=== PATIENT | female | born 1955 | race Two or more races ===

== ENCOUNTER 2021-05-23 14:32 | Inpatient (IN) | payer MEDICARE, MEDICAID ==
[~2021-05-23] VITALS: Ht 165.1 cm; Wt 86.4 kg
[2021-05-23 16:53] LABS: Basophils # (auto) 0 10 ^3/uL (0-0.2); Basophils % (auto) 0.2 % (0.0-2.0); Eosinophils # (auto) 0 10 ^3/uL (0-0.8); Eosinophils % (auto) 0.1 % (0.0-7.0); Hematocrit 22.7 % (36.0-46.0); Hemoglobin 7.7 g/dL (12.2-16.2); Lymphocytes # (auto) 0.8 10 ^3/uL (0.4-5.4); Lymphocytes % (auto) 6.6 % (10.0-50.0); Mean Corpuscular Hemoglobin 29.6 pg (28.0-32.0); Mean Corpuscular Hgb Conc. 33.9 g/dL (32.0-36.0); Mean Corpuscular Volume 87.4 fL (80.0-100.0); Monocytes # (auto) 0.4 10 ^3/uL (0-1.3); Monocytes % (auto) 3.4 % (0.0-12.0); Neutrophils # (auto) 10.9 10 ^3/uL (1.6-8.6); Neutrophils % (auto) 89.7 % (37.0-80.0); Red Cell Distribution Width 13.5 % (11.8-14.3); White Blood Cell 12.1 10^3/uL (4.4-10.8)
[2021-05-23] MEDS ORDERED: FERROUS SULFATE 325mg EC TAB PO ONE ×2 (17:00→21:00)
[2021-05-23 17:03] LABS: Albumin 2.2 g/dL (3.4-5.0); Calcium 7.7 mg/dL (8.5-10.1); Potassium 4.3 mmol/L (3.5-5.1)
[2021-05-23 17:08] LABS: BUN/Creatinine Ratio 42.2; Bilirubin, Total 0.3 mg/dL (0.2-1.0); Total Protein 5.9 g/dL (6.4-8.2)
[2021-05-23] MEDS ORDERED: NOREPINEPHRINE 8 MG/250ML KIT 250 ML IV SCH (17:15)
[2021-05-23] MEDS ORDERED: NITROGLYCERIN 0.4 MG SL TAB SL PRN (18:00)
[2021-05-23] MEDS ORDERED: MORPHINE SULFATE INJECTION 2 MG/ML SYRG IV PRN ×2 (18:00→21:00)
[2021-05-23] MEDS ORDERED: SODIUM CHLORIDE 0.9% 1,000 ML IV ONE ×2 (18:15→19:00)
[2021-05-23] MEDS ORDERED: LACTULOSE 20Gm/30ML SOLN PO PRN (21:00)
[2021-05-23] MEDS ORDERED: IPRATROPIUM BROM 0.5 MG/2.5ML INH SOL NEB ONE (21:00)
[2021-05-23] MEDS ORDERED: HYDROcodone-ACET 5/325MG TAB PO ONE (21:00)
[2021-05-23] MEDS ORDERED: METOCLOPRAMIDE HCL 5MG/ml INJ 2ml VIAL IV PRN (21:00)
[2021-05-23] MEDS ORDERED: hydrALAZINE HCL 20 MG/ML VL IV PRN (21:00)
[2021-05-23] MEDS ORDERED: MULTIPLE VITAMINS W/ MINERALS TAB PO ONE (21:00)
[2021-05-23] MEDS ORDERED: cefTRIAXone 1GM/50ML D5W 50 ML IV ONE (21:00)
[2021-05-23] MEDS ORDERED: PANTOPRAZOLE 40 MG/10 ML VIAL INJ IV ONE (21:00)
[2021-05-23] MEDS ORDERED: DOCUSATE SOD 100 MG CAP PO PRN (21:00)
[2021-05-23 21:54] LABS: Urine Bacteria NONE SEEN /hpf (None Seen); Urine Blood Negative /uL (Negative); Urine Specific Gravity 1.019 (1.001-1.035); Urine WBC <1 /hpf (0 - 5)
[2021-05-23 22:00] VITALS: BP 107/59
[2021-05-23] MEDS: METOPROLOL TARTRATE 25 MG TAB PO SCH (22:00)
[2021-05-23] MEDS ORDERED: AZITHROMYCIN 500MG/ 250ML 250 ML IV ONE (22:00)
[2021-05-23] MEDS ORDERED: ACETYLCYSTEINE 10 %(100MG/ML) SOL 4ML NEB SCH (22:00)
[2021-05-23] MEDS ORDERED: IPRATROPIUM BROM 0.5 MG/2.5ML INH SOL NEB SCH (22:00)
[2021-05-23 22:50] LABS: Magnesium 1.8 mg/dL (1.6-2.6); Phosphorus 2.3 mg/dL (2.5-4.90)
[2021-05-23] MEDS: ONDANSETRON HCL 4 MG/2 ML VIAL IV PRN (23:08)
[2021-05-23] MEDS: LORazepam 0.5 MG TAB PO PRN (23:09)
[2021-05-23] MEDS: SODIUM CHLORIDE 0.9% 1,000 ML IV SCH (23:09)
[2021-05-23] MEDS: ATORVASTATIN 20 MG TAB PO SCH (23:09)
[2021-05-23 23:33] LABS: Partial Thromboplastin Time 65.1 sec (23.6-33.0)
[2021-05-23 23:58] LABS: INR 4.22 (0.9-1.15)
[2021-05-24] VITALS (12 sets, daily range): BP systolic 92–129; BP diastolic 50–72
[2021-05-24 06:24] LABS: Basophils # (auto) 0 10 ^3/uL (0-0.2); Basophils % (auto) 0.3 % (0.0-2.0); Eosinophils # (auto) 0.1 10 ^3/uL (0-0.8); Lymphocytes # (auto) 1.6 10 ^3/uL (0.4-5.4); Monocytes # (auto) 0.7 10 ^3/uL (0-1.3)
[2021-05-24 06:27] LABS: Eosinophils % (auto) 0.7 % (0.0-7.0); Lymphocytes % (auto) 18.3 % (10.0-50.0); Mean Corpuscular Hemoglobin 30.8 pg (28.0-32.0); Mean Corpuscular Hgb Conc. 34.8 g/dL (32.0-36.0); Mean Corpuscular Volume 88.5 fL (80.0-100.0); Monocytes % (auto) 8.3 % (0.0-12.0); Neutrophils # (auto) 6.5 10 ^3/uL (1.6-8.6); Neutrophils % (auto) 72.4 % (37.0-80.0); Red Cell Distribution Width 13.8 % (11.8-14.3)
[2021-05-24 06:42] LABS: Hemoglobin 5.2 g/dL (12.2-16.2)
[2021-05-24 06:45] LABS: Albumin 1.8 g/dL (3.4-5.0); Calcium 7.2 mg/dL (8.5-10.1); Potassium 3.9 mmol/L (3.5-5.1)
[2021-05-24 06:47] LABS: Partial Thromboplastin Time 66.3 sec (23.6-33.0)
[2021-05-24 06:52] LABS: INR 4.37 (0.9-1.15)
[2021-05-24 06:54] LABS: BUN/Creatinine Ratio 48.1; Bilirubin, Total 0.2 mg/dL (0.2-1.0); CRP High Sensitivity 5.51 mg/dL (< 0.3); Phosphorus 2.2 mg/dL (2.5-4.90); Total Protein 4.7 g/dL (6.4-8.2)
[2021-05-24] MEDS ORDERED: PHYTONADIONE(VitK) ORAL Susp 5mg/5ml(1mg/ml) PO ONE ×2 (07:15→12:15)
[2021-05-24] MEDS: FERROUS SULFATE 325mg EC TAB PO SCH ×3 (10:05→18:08)
[2021-05-24] MEDS: PANTOPRAZOLE 40 MG/10 ML VIAL INJ IV SCH ×2 (10:05→22:24)
[2021-05-24] MEDS: LOSARTAN POTASSIUM 25 MG TAB PO SCH (10:05)
[2021-05-24] MEDS: CHOLECALCIFEROL (VITD3) 2,000 UNIT CAP/TAB PO SCH (10:06)
[2021-05-24] MEDS: METOPROLOL TARTRATE 25 MG TAB PO SCH ×2 (10:06→22:24)
[2021-05-24] MEDS: SODIUM CHLORIDE 0.9% 1,000 ML IV SCH ×2 (10:20→23:40)
[2021-05-24] MEDS ORDERED: PHYTONADIONE (VIT K)10 MG/ML 1ML VIAL SUBCUT ONE (11:45)
[2021-05-24 16:17] LABS: Partial Thromboplastin Time 50.4 sec (23.6-33.0)
[2021-05-24 16:33] LABS: INR 4.14 (0.9-1.15)
[2021-05-24] MEDS: HYDROcodone-ACET 5/325MG TAB PO PRN (18:09)
[2021-05-24] MEDS: ONDANSETRON HCL 4 MG/2 ML VIAL IV PRN (18:45)
[2021-05-24 21:21] LABS: Hematocrit 19.5 % (36.0-46.0)
[2021-05-24 21:29] LABS: Hemoglobin 6.7 g/dL (12.2-16.2)
[2021-05-24] MEDS: cefTRIAXone 1GM/50ML D5W 50 ML IV SCH (21:40)
[2021-05-24] MEDS: AZITHROMYCIN 500MG/ 250ML 250 ML IV SCH (22:00)
[2021-05-24] MEDS: MULTIPLE VITAMINS W/ MINERALS TAB PO SCH (22:24)
[2021-05-24] MEDS: ATORVASTATIN 20 MG TAB PO SCH (22:24)
[2021-05-25] VITALS (12 sets, daily range): BP systolic 98–140; BP diastolic 51–71
[2021-05-25] MEDS: SODIUM CHLORIDE 0.9% 1,000 ML IV SCH ×2 (05:40→19:50)
[2021-05-25 05:53] LABS: INR 1.79 (0.9-1.15)
[2021-05-25 05:58] LABS: Basophils # (auto) 0 10 ^3/uL (0-0.2); Basophils % (auto) 0.4 % (0.0-2.0); Eosinophils # (auto) 0.3 10 ^3/uL (0-0.8); Eosinophils % (auto) 2.8 % (0.0-7.0); Hematocrit 21.5 % (36.0-46.0); Hemoglobin 7.5 g/dL (12.2-16.2); Lymphocytes # (auto) 2.4 10 ^3/uL (0.4-5.4); Lymphocytes % (auto) 25.3 % (10.0-50.0); Mean Corpuscular Hemoglobin 31.1 pg (28.0-32.0); Mean Corpuscular Hgb Conc. 34.8 g/dL (32.0-36.0); Mean Corpuscular Volume 89.2 fL (80.0-100.0); Monocytes # (auto) 0.7 10 ^3/uL (0-1.3); Monocytes % (auto) 6.9 % (0.0-12.0); Neutrophils # (auto) 6.1 10 ^3/uL (1.6-8.6); Neutrophils % (auto) 64.6 % (37.0-80.0); Nucleated Red Blood Cells % 0.1 %; Red Blood Cells 2.41 10^6/uL (4.0-5.20); Red Cell Distribution Width 13.9 % (11.8-14.3); White Blood Cell 9.4 10^3/uL (4.4-10.8)
[2021-05-25 06:10] LABS: Albumin 1.9 g/dL (3.4-5.0); Calcium 7.9 mg/dL (8.5-10.1); Potassium 4.1 mmol/L (3.5-5.1)
[2021-05-25 06:12] LABS: BUN/Creatinine Ratio 59.2
[2021-05-25 06:20] LABS: Bilirubin, Total 0.2 mg/dL (0.2-1.0); Total Protein 4.9 g/dL (6.4-8.2)
[2021-05-25] MEDS ORDERED: GASTROGRAFIN 30 ML SOL ONE (08:20)
[2021-05-25] MEDS ORDERED: PHYTONADIONE (VIT K)10 MG/ML 1ML VIAL SUBCUT ONE (09:00)
[2021-05-25 09:02] LABS: Hematocrit 22.2 % (36.0-46.0); Hemoglobin 7.8 g/dL (12.2-16.2)
[2021-05-25] MEDS: PANTOPRAZOLE 40 MG/10 ML VIAL INJ IV SCH ×2 (10:28→21:05)
[2021-05-25] MEDS: METOPROLOL TARTRATE 25 MG TAB PO SCH ×2 (10:30→22:35)
[2021-05-25] MEDS: CHOLECALCIFEROL (VITD3) 2,000 UNIT CAP/TAB PO SCH (10:30)
[2021-05-25] MEDS: LOSARTAN POTASSIUM 25 MG TAB PO SCH (10:30)
[2021-05-25] MEDS: FERROUS SULFATE 325mg EC TAB PO SCH ×3 (10:30→18:00)
[2021-05-25 13:50] LABS: INR 1.57 (0.9-1.15); Partial Thromboplastin Time 31.7 sec (23.6-33.0)
[2021-05-25] MEDS ORDERED: MAGNESIUM CITRATE SOLUTION 300 ML BTL PO ONE (20:30)
[2021-05-25] MEDS ORDERED: GOLYTELY 4L KIT PO ONE (20:30)
[2021-05-25] MEDS: cefTRIAXone 1GM/50ML D5W 50 ML IV SCH (21:05)
[2021-05-25] MEDS: MULTIPLE VITAMINS W/ MINERALS TAB PO SCH (21:06)
[2021-05-25] MEDS: ATORVASTATIN 20 MG TAB PO SCH (21:06)
[2021-05-25] MEDS: AZITHROMYCIN 500MG/ 250ML 250 ML IV SCH (22:38)
[2021-05-25 23:30] LABS: Alcohol, Urine < 3.0 mg/dL (0-10); Amphetamine Screen, Urine NEGATIVE (NEGATIVE); Barbiturate Scree,Urine NEGATIVE (NEGATIVE); Benzodiazephine Screen, Urine NEGATIVE (NEGATIVE); Cocaine Screen, Urine NEGATIVE (NEGATIVE); Opiate Scree,Urine NEGATIVE (NEGATIVE); Phencyclidine Screen, Urine NEGATIVE (NEGATIVE)
[2021-05-25 23:37] LABS: Cannabinoid Screen, Urine NEGATIVE (NEGATIVE)
[2021-05-26] VITALS (8 sets, daily range): BP systolic 115–140; BP diastolic 60–77
[2021-05-26] MEDS: LORazepam 0.5 MG TAB PO PRN (00:10)
[2021-05-26] MEDS: ONDANSETRON HCL 4 MG/2 ML VIAL IV PRN (00:14)
[2021-05-26] MEDS ORDERED: GOLYTELY 4L KIT PO ONE (06:00)
[2021-05-26] MEDS ORDERED: MAGNESIUM CITRATE SOLUTION 300 ML BTL PO ONE (06:00)
[2021-05-26 06:15] LABS: Basophils # (auto) 0 10 ^3/uL (0-0.2); Eosinophils # (auto) 0.3 10 ^3/uL (0-0.8); Eosinophils % (auto) 3.7 % (0.0-7.0); Neutrophils # (auto) 5.6 10 ^3/uL (1.6-8.6)
[2021-05-26 06:19] LABS: Basophils % (auto) 0.5 % (0.0-2.0); Hematocrit 19.4 % (36.0-46.0); Lymphocytes # (auto) 2.1 10 ^3/uL (0.4-5.4); Lymphocytes % (auto) 24.1 % (10.0-50.0); Mean Corpuscular Hemoglobin 31.9 pg (28.0-32.0); Mean Corpuscular Hgb Conc. 35.6 g/dL (32.0-36.0); Mean Corpuscular Volume 89.5 fL (80.0-100.0); Monocytes # (auto) 0.5 10 ^3/uL (0-1.3); Monocytes % (auto) 6.3 % (0.0-12.0); Neutrophils % (auto) 65.4 % (37.0-80.0); Red Blood Cells 2.16 10^6/uL (4.0-5.20); Red Cell Distribution Width 13.9 % (11.8-14.3); White Blood Cell 8.6 10^3/uL (4.4-10.8)
[2021-05-26 06:42] LABS: Hemoglobin 6.9 g/dL (12.2-16.2)
[2021-05-26] MEDS: PANTOPRAZOLE 40 MG/10 ML VIAL INJ IV SCH ×2 (09:14→21:16)
[2021-05-26] MEDS: LOSARTAN POTASSIUM 25 MG TAB PO SCH (09:14)
[2021-05-26] MEDS: FERROUS SULFATE 325mg EC TAB PO SCH ×3 (09:14→17:49)
[2021-05-26] MEDS: METOPROLOL TARTRATE 25 MG TAB PO SCH ×2 (09:15→21:12)
[2021-05-26] MEDS: CHOLECALCIFEROL (VITD3) 2,000 UNIT CAP/TAB PO SCH (09:15)
[2021-05-26] MEDS ORDERED: LIDOCAINE VISCOUS 2% 15ML UD ONE (12:49)
[2021-05-26] MEDS ORDERED: SODIUM CHLORIDE LOCK 10 ML ONE (12:49)
[2021-05-26] MEDS: MIDAZOLAM HCL 5 MG/ML-1ML VIAL ONE ×2 (14:33→14:38)
[2021-05-26] MEDS: fentaNYL CITRATE 100 MCG/2 ML VL ONE ×2 (14:33→14:38)
[2021-05-26] MEDS: diphenhdrAMINE HCL 50 MG/1 ML VL ONE ×2 (14:34→14:38)
[2021-05-26] MEDS: SODIUM CHLORIDE 0.9% 1,000 ML IV SCH (17:49)
[2021-05-26] MEDS: HYDROcodone-ACET 5/325MG TAB PO PRN (17:50)
[2021-05-26] MEDS: MULTIPLE VITAMINS W/ MINERALS TAB PO SCH (21:13)
[2021-05-26] MEDS: ATORVASTATIN 20 MG TAB PO SCH (21:14)
[2021-05-26] MEDS: cefTRIAXone 1GM/50ML D5W 50 ML IV SCH (21:58)
[2021-05-26] MEDS: AZITHROMYCIN 500MG/ 250ML 250 ML IV SCH (22:34)
[2021-05-27 05:00] VITALS: BP 136/81
[2021-05-27] MEDS: SODIUM CHLORIDE 0.9% 1,000 ML IV SCH (05:12)
[2021-05-27 05:48] LABS: Basophils # (auto) 0 10 ^3/uL (0-0.2); Basophils % (auto) 0.4 % (0.0-2.0); Lymphocytes # (auto) 2.1 10 ^3/uL (0.4-5.4); Lymphocytes % (auto) 26.8 % (10.0-50.0); Monocytes # (auto) 0.6 10 ^3/uL (0-1.3); Neutrophils # (auto) 4.9 10 ^3/uL (1.6-8.6)
[2021-05-27 05:50] LABS: Eosinophils # (auto) 0.2 10 ^3/uL (0-0.8); Eosinophils % (auto) 3.2 % (0.0-7.0); Hematocrit 22.4 % (36.0-46.0); Hemoglobin 7.9 g/dL (12.2-16.2); Mean Corpuscular Hemoglobin 31.5 pg (28.0-32.0); Mean Corpuscular Hgb Conc. 35.3 g/dL (32.0-36.0); Mean Corpuscular Volume 89.1 fL (80.0-100.0); Monocytes % (auto) 7.1 % (0.0-12.0); Neutrophils % (auto) 62.5 % (37.0-80.0); Nucleated Red Blood Cells % 0.1 %; Red Blood Cells 2.52 10^6/uL (4.0-5.20); Red Cell Distribution Width 13.9 % (11.8-14.3); White Blood Cell 7.8 10^3/uL (4.4-10.8)
[2021-05-27 09:00] VITALS: BP 140/82
[2021-05-27] MEDS ORDERED: PANT40T PO (09:34)
[2021-05-27] MEDS ORDERED: AZIT500T66 PO (09:34)
[2021-05-27] MEDS ORDERED: FERR-7 PO (09:34)
[2021-05-27] MEDS: PANTOPRAZOLE 40 MG/10 ML VIAL INJ IV SCH (09:49)
[2021-05-27] MEDS: FERROUS SULFATE 325mg EC TAB PO SCH (09:49)
[2021-05-27] MEDS: METOPROLOL TARTRATE 25 MG TAB PO SCH (09:50)
[2021-05-27] MEDS: CHOLECALCIFEROL (VITD3) 2,000 UNIT CAP/TAB PO SCH (09:50)
[2021-05-27] MEDS: LOSARTAN POTASSIUM 25 MG TAB PO SCH (09:50)
== END 2021-05-27 12:30 | disposition home or self-care (01) | DRG 871 ==
LOC: EDBD 14:32 → ER 14:32 → TELE 17:53 → TELE-EAST 22:50
PROVIDERS: ADMIT Hospitalist; ATTEND Family Medicine
PROC: 30233N1 Transfusion of Nonautologous Red Blood Cells into Peripheral Vein, Percutaneous Approach (ICD-10-PCS; 2021-05-24)
PROC: 30233K1 Transfusion of Nonautologous Frozen Plasma into Peripheral Vein, Percutaneous Approach (ICD-10-PCS; 2021-05-25)
PROC: 0DB58ZX Excision of Esophagus, Via Natural or Artificial Opening Endoscopic, Diagnostic (ICD-10-PCS; 2021-05-26)
PROC: 0DB68ZX Excision of Stomach, Via Natural or Artificial Opening Endoscopic, Diagnostic (ICD-10-PCS; principal; 2021-05-26 14:28)
DX: A41.9 Sepsis, unspecified organism (principal); J18.9 Pneumonia, unspecified organism; E43 Unspecified severe protein-calorie malnutrition; K29.71 Gastritis, unspecified, with bleeding; D68.4 Acquired coagulation factor deficiency; D68.59 Other primary thrombophilia; R53.81 Other malaise; Z20.822 Contact with and (suspected) exposure to COVID-19; I95.9 Hypotension, unspecified; E88.81 Metabolic syndrome and other insulin resistance; M43.16 Spondylolisthesis, lumbar region; D64.9 Anemia, unspecified; K21.9 Gastro-esophageal reflux disease without esophagitis; I48.0 Paroxysmal atrial fibrillation; K44.9 Diaphragmatic hernia without obstruction or gangrene; E66.01 Morbid (severe) obesity due to excess calories; E78.00 Pure hypercholesterolemia, unspecified; E78.5 Hyperlipidemia, unspecified; I10 Essential (primary) hypertension; T45.515A Adverse effect of anticoagulants, initial encounter; Z68.31 Body mass index [BMI] 31.0-31.9, adult; Z79.01 Long term (current) use of anticoagulants; Z86.718 Personal history of other venous thrombosis and embolism
CPT/HCPCS: 36415; 43239; 70450; 71045; 72131; 74177; 80053; 80061; 80307; 81001; 82270; 82728; 83036; 83615; 83690; 83735; 83880; 84100; 84443; 84484; 85014; 85018; 85025; 85379; 85610; 85652; 85730; 86141; 86850; 86900; 86901; 86920; 87040; 87086; 93005; 93306; 93886; 93925; 93970; 96360; 96361; C9113; G0378; J0696; J2250; J2405; J3430

== ENCOUNTER 2021-10-03 08:38 | Inpatient (IN) | payer BC, MEDICAID ==
[~2021-10-03] VITALS: Ht 157.5 cm; Wt 77.2 kg
[~2021-10-03 08:38] MED LIST: AZIT500T66 PO; FERR-7 PO; PANT40T PO
[2021-10-03 09:13] LABS: Basophils # (auto) 0 10 ^3/uL (0-0.2); Basophils % (auto) 0.4 % (0.0-2.0); Eosinophils # (auto) 0 10 ^3/uL (0-0.8); Eosinophils % (auto) 0.7 % (0.0-7.0); Hematocrit 44.3 % (36.0-46.0); Hemoglobin 14.3 g/dL (12.2-16.2); Lymphocytes % (auto) 14.2 % (10.0-50.0); Mean Corpuscular Hemoglobin 29.1 pg (28.0-32.0); Mean Corpuscular Hgb Conc. 32.3 g/dL (32.0-36.0); Mean Corpuscular Volume 89.9 fL (80.0-100.0); Monocytes # (auto) 0.4 10 ^3/uL (0-1.3); Monocytes % (auto) 5.4 % (0.0-12.0); Neutrophils # (auto) 5.6 10 ^3/uL (1.6-8.6); Neutrophils % (auto) 79.3 % (37.0-80.0); Nucleated Red Blood Cells % 0.1 %; Red Blood Cells 4.93 10^6/uL (4.0-5.20); Red Cell Distribution Width 14.1 % (11.8-14.3); White Blood Cell 7.1 10^3/uL (4.4-10.8)
[2021-10-03 09:24] LABS: Urine Bacteria FEW /hpf (None Seen); Urine Blood Negative /uL (Negative); Urine Mucus FEW (None Seen); Urine Specific Gravity 1.032 (1.001-1.035); Urine WBC 4 /hpf (0 - 5)
[2021-10-03 09:35] LABS: Albumin 3.7 g/dL (3.4-5.0); Calcium 8.9 mg/dL (8.5-10.1); Magnesium 1.7 mg/dL (1.6-2.6); Potassium 3.8 mmol/L (3.5-5.1)
[2021-10-03 09:39] LABS: BUN/Creatinine Ratio 24.7; Bilirubin, Total 0.7 mg/dL (0.2-1.0); Total Protein 7.9 g/dL (6.4-8.2)
[2021-10-03] MEDS ORDERED: PANTOPRAZOLE 40 MG/10 ML VIAL INJ IV ONE (10:15)
[2021-10-03] MEDS ORDERED: metroNIDAZOLE 500MG/100ML 100 ML IV ONE (10:15)
[2021-10-03] MEDS ORDERED: cefTRIAXone 1GM/50ML D5W 50 ML IV ONE ×2 (10:15→13:45)
[2021-10-03] MEDS ORDERED: KETOROLAC TROMETH 30 MG/ML 1ML VIAL IV ONE (10:15)
[2021-10-03] MEDS ORDERED: LACTATED RINGER'S 1,000 ML IV ONE (12:00)
[2021-10-03] MEDS ORDERED: SODIUM CHLORIDE 0.9% 1,000 ML IV ONE (12:15)
[2021-10-03] MEDS ORDERED: HYDROmorphone HCL 2 MG/ML VL/or syr IV ONE (13:15)
[2021-10-03] MEDS ORDERED: DOCUSATE SOD 100 MG CAP PO PRN (13:45)
[2021-10-03] MEDS: metroNIDAZOLE 500MG/100ML 100 ML IV SCH ×2 (13:45→22:26)
[2021-10-03] MEDS ORDERED: HYDROmorphone HCL 2 MG/ML VL/or syr IV PRN (13:45)
[2021-10-03] MEDS ORDERED: ACETAMINOPHEN 325 MG TAB PO PRN (13:45)
[2021-10-03] MEDS ORDERED: ONDANSETRON HCL 4 MG/2 ML VIAL IV PRN (13:45)
[2021-10-03] MEDS: SODIUM CHLOR 0.9% PF (SALINE LOCK) 10ML VIAL/SYR IV SCH ×2 (14:00→22:26)
[2021-10-03] MEDS: HYDROcodone-ACET 5/325MG TAB PO PRN ×2 (16:05→21:29)
[2021-10-03 23:00] VITALS: BP 132/74
[2021-10-04] MEDS ORDERED: METO25TA5 PO (02:11)
[2021-10-04] MEDS ORDERED: ATOR10TA52 PO (02:11)
[2021-10-04 05:00] VITALS: BP 125/70
[2021-10-04] MEDS: metroNIDAZOLE 500MG/100ML 100 ML IV SCH ×2 (05:57→14:36)
[2021-10-04] MEDS: SODIUM CHLOR 0.9% PF (SALINE LOCK) 10ML VIAL/SYR IV SCH ×2 (06:00→14:00)
[2021-10-04 08:32] VITALS: BP 112/66
[2021-10-04] MEDS ORDERED: METR500T PO (09:27)
[2021-10-04] MEDS ORDERED: SUCR1SUS10 PO (09:27)
[2021-10-04] MEDS ORDERED: PANT40T PO (09:27)
[2021-10-04 11:50] LABS: INR 1.11 (0.9-1.15); Partial Thromboplastin Time 34.7 sec (24.6-33.4)
[2021-10-04 13:27] VITALS: BP 120/60
[2021-10-04 14:42] VITALS: BP 112/66
[2021-10-04] MEDS: HYDROcodone-ACET 5/325MG TAB PO PRN (16:42)
== END 2021-10-04 17:00 | disposition home or self-care (01) | DRG 391 ==
LOC: ER 08:38 → OVERFLOW 15:13 → EAST 21:35
PROVIDERS: ADMIT Internal Medicine; ATTEND Internal Medicine
DX: K44.9 Diaphragmatic hernia without obstruction or gangrene (principal); U07.1 COVID-19; K52.9 Noninfective gastroenteritis and colitis, unspecified; E86.0 Dehydration; I95.9 Hypotension, unspecified; I10 Essential (primary) hypertension; Z90.49 Acquired absence of other specified parts of digestive tract; E78.5 Hyperlipidemia, unspecified; K21.9 Gastro-esophageal reflux disease without esophagitis; K20.90 Esophagitis, unspecified without bleeding; K57.30 Diverticulosis of large intestine without perforation or abscess without bleeding; Z20.822 Contact with and (suspected) exposure to COVID-19; D25.9 Leiomyoma of uterus, unspecified; D64.9 Anemia, unspecified
CPT/HCPCS: 36415; 71045; 71250; 74018; 74176; 76830; 76856; 80053; 81001; 82150; 82306; 83036; 83605; 83690; 83735; 84484; 85025; 85379; 85610; 85652; 85730; 86141; 86304; 87040; 87077; 87186; 96365; 96367; 96375; 96376; C9113; G0378; J0696; J1885; J3490